=== PATIENT | female | born 1975 | race Caucasian/White ===

== ENCOUNTER 2018-01-04 07:05 | Inpatient (IN) | payer OTHER ==
[2018-01-04] VITALS (14 sets, daily range): BP systolic 138–183; BP diastolic 66–105; PULSE 81–107; RESP 16–20; TEMP 98–99.9; O2SAT 95–100
[~2018-01-04] VITALS: Ht 149.9 cm; Wt 98.2 kg
--- NOTE | 2018-01-04 07:42 | PD ---
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 She says she has been having vaginal bleeding for the past 3 weeks is been somewhat heavy with clots. Started on December 16. It was initially light and has become heavier. She has an appointment with a foam gun operator on Monday. She has a history of tubal ligation in 2006. She is on no prescription medications. She takes Aleve daily she says for migraine headaches. [facility] Past Medical History Medical History: Denies Significant Hx Influenza Vaccination: No ?: Not LMP: NOW Past Surgical History Surgical History: No Previous Surgery Section: Yes (X 2) Social History Alcohol Use: No Tobacco Use: No Substance Use: No Allergies-Medications (Allergen,Severity, Reaction): Coded Allergies: No Known Allergies (Unverified , 01/04/18) Reported Meds & Prescriptions Reported Meds & Active Scripts Active No Active Prescriptions or Reported Medications Review of Systems General / Constitutional: No: Fever Eyes: No: Diploplia, Blurred Vision HENT: Positive: Lightheadedness Cardiovascular: No: Chest Pain or Discomfort, Palpitations Respiratory: No: Cough, Shortness of Breath Gastrointestinal: No: Vomiting, Diarrhea Genitourinary: No: Urgency, Frequency Musculoskeletal: No: Myalgias Skin: No Rash Neurologic: Positive: Weakness, Dizziness Physical Exam Narrative GENERAL: Well-developed female SKIN: Focused skin assessment warm/dry. She is somewhat pale HEAD: Atraumatic. Normocephalic. EYES: Pupils equal and round. No scleral icterus. No injection or drainage. ENT: No nasal bleeding or discharge. Mucous membranes pink and moist. NECK: Trachea midline. No JVD. CARDIOVASCULAR: Regular rate and rhythm. No murmur appreciated. RESPIRATORY: No accessory muscle use. Clear to auscultation. Breath sounds equal bilaterally. GASTROINTESTINAL: Abdomen soft, non-tender, nondistended. Hepatic and splenic margins not palpable TROLLEY CAR OPERATOR: There is some blood coming from the cervical loss. Uterus is 16 weeks in size. MUSCULOSKELETAL: No obvious deformities. No clubbing. No cyanosis. No edema. NEUROLOGICAL: Awake and alert. No obvious cranial nerve deficits. Motor grossly within normal limits. Normal speech. PSYCHIATRIC: Appropriate mood and affect; insight and judgment normal. Data Data Last Documented VS Vital Signs Date Time Temp Pulse Resp B/P (MAP) Pulse Ox O2 Delivery O2 Flow Rate FiO2 01/04/18 08:50 95 20 164/66 (98) 95 01/04/18 07:06 98.5 Room Air Orders Orders Complete Blood Count With Diff (01/04/18 07:40) Basic Metabolic Panel (Bmp) (01/04/18 07:40) Urinalysis - C+S If Indicated (01/04/18 07:40) Beta Hcg (Quant/Titer) (01/04/18 07:40) Sodium Chlor 0.9% 1000 Ml Inj (Ns 1000 M (01/04/18 07:45) Red Blood Cells (Rbc) (01/04/18 08:09) Type And Screen (01/04/18 08:09) Urine Culture (01/04/18 07:49) Admit Order (Ed Use Only) (01/04/18 09:08) ^ Other Nursing Orders (01/04/18 09:08) Labs Laboratory Tests Test 01/04/18 07:30 01/04/18 07:49 White Blood Count 6.8 TH/MM3 Red Blood Count 2.40 MIL/MM3 Hemoglobin 6.8 GM/DL Hematocrit 19.9 % Mean Corpuscular Volume 83.1 FL Mean Corpuscular Hemoglobin 28.3 PG Mean Corpuscular Hemoglobin Concent 34.1 % Red Cell Distribution Width 13.3 % Platelet Count 410 TH/MM3 Mean Platelet Volume 7.7 FL Neutrophils (%) (Auto) 69.5 % Lymphocytes (%) (Auto) 22.9 % Monocytes (%) (Auto) 4.5 % Eosinophils (%) (Auto) 2.4 % Basophils (%) (Auto) 0.7 % Neutrophils # (Auto) 4.8 TH/MM3 Lymphocytes # (Auto) 1.5 TH/MM3 Monocytes # (Auto) 0.3 TH/MM3 Eosinophils # (Auto) 0.2 TH/MM3 Basophils # (Auto) 0.0 TH/MM3 CBC Comment DIFF FINAL Differential Comment Blood Urea Nitrogen 10 MG/DL Creatinine 0.50 MG/DL Random Glucose 115 MG/DL Calcium Level 7.8 MG/DL Sodium Level 140 MEQ/L Potassium Level 3.9 MEQ/L Chloride Level 109 MEQ/L Carbon Dioxide Level 21.2 MEQ/L Anion Gap 10 MEQ/L Estimat Glomerular Filtration Rate 135 ML/MIN Human Chorionic Gonadotropin, Quant LESS THAN 1 MIU/ML Urine Collection Type VOIDED Urine Color LIGHT-RED Urine Turbidity CLEAR Urine pH 5.5 Urine Specific [place] GREATER/EQUAL 1.030 Urine Protein 30 mg/dL Urine Glucose (UA) NEG mg/dL Urine Ketones NEG mg/dL Urine Occult Blood LARGE Urine Nitrite NEG Urine Bilirubin NEG Urine Urobilinogen 0.2 MG/DL Urine Leukocyte Esterase NEG Urine RBC INNUM /hpf Urine WBC 6-8 /hpf Urine WBC Clumps OCC Urine Squamous Epithelial Cells 0-3 /hpf Urine Bacteria FEW /hpf Urine Hyaline Casts MOD /lpf Microscopic Urinalysis Comment CULTURE INDICATED MDM Medical Decision Making Medical Screen Exam Complete: Yes Emergency Medical Condition: Yes Medical Record Reviewed: Yes Differential Diagnosis Differential includes anemia, menorrhagia, uterine fibroids Narrative Course Hemoglobin is 6.8. Patient is quite symptomatic with his anemia. She does have enlarged uterus suspicious for fibroids though this has not been diagnosed definitively. I have spoken with Dr. Mohan covering for Dr. Kumari. She recommends admission at the [facility] for transfusion and TROLLEY CAR OPERATOR evaluation. Ultrasound has been done and shows a fibroid uterus. The left ovary is not seen Diagnosis Primary Impression: Abnormal uterine bleeding Additional Impression: Symptomatic anemia Admitting Information Admitting Physician Requests: Admit Scripts No Active Prescriptions or Reported Meds Chinmay Kitchen MD Jan 04, 2018 07:42
[2018-01-04] MEDS ORDERED: SODIUM CHLOR 0.9% 1000 ML INJ 1,000 ML IV ONE ×2 (07:45→12:00)
[2018-01-04 07:57] LABS: BILIRUBIN, URINE NEG (NEG); BLOOD, URINE LARGE (NEG); GLUCOSE,URINE NEG (NEG); KETONE, URINE NEG (NEG); NITRITE,URINE NEG (NEG); PH, URINE 5.5 (5.0-8.5); URINE LEUKOCYTE ESTERASE NEG (NEG)
[2018-01-04 07:59] LABS: AUTOMATED NEUTROPHIL # 4.8 TH/MM3 (1.8-7.7); BASOPHIL % 0.7 % (0.0-2.0); EOSINOPHIL # 0.2 TH/MM3 (0-0.4); EOSINOPHIL % 2.4 % (0.0-4.0); LYMPH % 22.9 % (9.0-44.0); LYMPHOCYTE # 1.5 TH/MM3 (1.0-4.8); MEAN CELL VOLUME 83.1 FL (80.0-100.0); MEAN CORPUSCULAR HEMOGLOBIN 28.3 PG (27.0-34.0); MEAN CORPUSCULAR HGB CONC 34.1 % (32.0-36.0); MEAN PLATELET VOLUME 7.7 FL (7.0-11.0); MONO % 4.5 % (0.0-8.0); MONOCYTE # 0.3 TH/MM3 (0-0.9); NEUT % 69.5 % (16.0-70.0); PLATELET COUNT 410 TH/MM3 (150-450); RED CELL DISTRIBUTION WIDTH 13.3 % (11.6-17.2)
[2018-01-04 07:59] LABS: URINE COLOR LIGHT-RED (YELLW/STRAW)
[2018-01-04 08:07] LABS: WHITE BLOOD COUNT 6.8 TH/MM3 (4.0-11.0)
[2018-01-04 08:08] LABS: CHLORIDE 109 MEQ/L (98-107); HEMATOCRIT 19.9 % (35.0-46.0); HEMOGLOBIN 6.8 GM/DL (11.6-15.3); SODIUM (NA) 140 MEQ/L (136-145)
[2018-01-04 08:13] LABS: BACTERIA, URINE FEW /hpf; HYALINE CAST, URINE MOD /lpf (RARE); RBC, URINE INNUM /hpf (0-3); SQUAMOUS EPITHELIAL CELL URINE 0-3 /hpf (0-5); WHITE BLOOD CELL CLUMPS OCC
[2018-01-04 08:20] LABS: BICARBONATE 21.2 MEQ/L (21.0-32.0); BLOOD UREA NITROGEN 10 MG/DL (7-18); CALCIUM 7.8 MG/DL (8.5-10.1); GLUCOSE,RANDOM 115 MG/DL (74-106)
[2018-01-04 08:23] LABS: GLOMERULAR FILTRATION RATE 135 ML/MIN (>89)
--- NOTE | 2018-01-04 10:15 | RADRPT ---
EXAM DATE: 01/04/2018 10:03 AM EDT AGE/SEX: 42 years / Female INDICATIONS: Heavy bleeding for three weeks. CLINICAL DATA: This is the patient's initial encounter. Patient reports that signs and symptoms have been present for 3 weeks and indicates a pain score of 0/10. MEDICAL/SURGICAL HISTORY: . Weakness. Dizziness. section. Tubal ligation. COMPARISON: No prior exams available for comparison. MEASUREMENTS: Uterus:__12.8 x 6.0 x 5.1 cm Endometrial Stripe:__19 mm Right Ovary:__ 6.3 x 5.6 x 3.7 cm Left Ovary:__ not seen FINDINGS: Uterus: Several vague areas of focally altered myometrial echogenicity are likely small fibroids inv olving posterior body of uterus. There are tiny nabothian cysts. Right Ovary: Focally unremarkable Left Ovary: Not visualized Other: No free fluid. CONCLUSION: 1. Fibroid uterus. 2. Left ovary is not located Electronically signed by: Lemuel Shaver MD 01/04/2018 10:14 AM EDT
--- NOTE | 2018-01-04 16:25 | HHI.HP ---
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 She originally presented to the [facility] today for dizziness, lightheadedness and found to have a hemoglobin of 6.8. They did not have blood available to transfuse her and my partner Dr. Mohan took the call to transfer her to [facility]. Patient states she has regular monthly cycles since menarche, she skipped her cycle in October and then began her cycle on 12/16/2017 and has been bleeding ever since, she has been passing large clots with overflow, this morning she felt dizzy, weak and went to the ER as stated above. She had an episode of prolonged bleeding for about 14 days 3 years ago, she denies any workup, knowledge of anemia, history of transfusions or hospitalizations or treatment for her cycles. She says she has began to have a headache that started when her most cycle began, it is throbbing behind both eyes radiating to the back of her head, denies any flashes of light, blurriness or changes in her vision, numbness or tingling, or trouble with speech. She denies any history of migraines. Has tried Tylenol with some relief. She denies any history of known hypertension. She has not seen a PCP in 2 years, or maintenance inspector in around 3 years. Review of Systems Constitutional: DENIES: Fever, Chills, Change in appetite Endocrine: DENIES: Heat/cold intolerance Eyes: DENIES: Blurred vision, Eye pain Past Family Social History Allergies: Coded Allergies: No Known Allergies (Unverified , 01/04/18) Past Medical History 1. Obesity Past Surgical History 1. Laparoscopic appendectomy done as a child 2. 2 (2005 & 2007) 3. Breast reduction 1997 Reported Medications None Family History Denies history of bleeding disorders, clotting problems, breast cancer, ovarian cancer or uterine cancer. Social History to name of Eliel. Works at [employer]. Denies tobacco alcohol or drug use. Moved here in the past 2 years from [facility]. 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 -Denies history of STDs or pelvic infections. Obstetrical history: -1994: Normal vaginal delivery -2005: Primary -2008: Repeat Physical Exam Vital Signs BP at bedise 182/100 Vital Signs Date Time Temp Pulse Resp B/P (MAP) Pulse Ox O2 Delivery O2 Flow Rate FiO2 01/04/18 15:30 01/04/18 13:42 92 18 144/76 (98) 100 Room Air 01/04/18 10:50 107 20 138/78 (98) 97 01/04/18 08:50 95 20 164/66 (98) 07:06 98.5 96 16 162/85 (110) 100 Room Air Physical Exam GENERAL: This is a well-nourished, well-developed patient, in no apparent distress. SKIN: No rashes, ecchymoses or lesions. Cool and dry. Pale HEAD: Atraumatic. Normocephalic. No temporal or scalp tenderness. EYES: Pupils equal round and reactive. Extraocular motions intact. No scleral icterus. No injection or drainage. ENT: Nose without bleeding, purulent drainage or septal hematoma. Throat without erythema, tonsillar hypertrophy or exudate. Uvula midline. Airway patent. NECK: Trachea midline. No JVD or lymphadenopathy. Supple, nontender, no meningeal signs. CARDIOVASCULAR: Regular rate and rhythm without murmurs, gallops, or rubs. RESPIRATORY: Clear to auscultation. Breath sounds equal bilaterally. No wheezes , rales, or rhonchi. GASTROINTESTINAL: Abdomen soft, non-tender, nondistended. No hepato-splenomegaly , or palpable masses. No guarding. : Normal external female genitalia, speculum inserted, pink rugated vaginal mucosa, normal-appearing cervix, minimal dark red blood clot in the vagina, cleared away and no active bleeding from the cervix which is also normal- appearing. Bimanual exam: uterus mobile, nontender, 12 week size, no adnexal masses palpable. MUSCULOSKELETAL: Extremities without clubbing, cyanosis, or edema. No joint tenderness, effusion, or edema noted. No calf tenderness. Negative Homans sign bilaterally. NEUROLOGICAL: Awake and alert. Cranial nerves II through XII intact. Motor and sensory grossly within normal limits. Normal speech. Laboratory Laboratory Tests Test 01/04/18 07:30 01/04/18 07:49 White Blood Count 6.8 Red Blood Count 2.40 Hemoglobin 6.8 Hematocrit 19.9 Mean Corpuscular Volume 83.1 Mean Corpuscular Hemoglobin 28.3 Mean Corpuscular Hemoglobin Concent 34.1 Red Cell Distribution Width 13.3 Platelet Count 410 Mean Platelet Volume 7.7 Neutrophils (%) (Auto) 69.5 Lymphocytes (%) (Auto) 22.9 Monocytes (%) (Auto) 4.5 Eosinophils (%) (Auto) 2.4 Basophils (%) (Auto) 0.7 Neutrophils # (Auto) 4.8 Lymphocytes # (Auto) 1.5 Monocytes # (Auto) 0.3 Eosinophils # (Auto) 0.2 Basophils # (Auto) 0.0 CBC Comment DIFF FINAL Differential Comment Blood Urea Nitrogen 10 Creatinine 0.50 Random Glucose 115 Calcium Level 7.8 Sodium Level 140 Potassium Level 3.9 Chloride Level 109 Carbon Dioxide Level 21.2 Anion Gap 10 Estimat Glomerular Filtration Rate 135 Human Chorionic Gonadotropin, Quant LESS THAN 1 Urine Collection Type VOIDED Urine Color LIGHT-RED Urine Turbidity CLEAR Urine pH 5.5 Urine Specific [place] GREATER/EQUAL 1.030 Urine Protein 30 Urine Glucose (UA) NEG Urine Ketones NEG Urine Occult Blood LARGE Urine Nitrite NEG Urine Bilirubin NEG Urine Urobilinogen 0.2 Urine Leukocyte Esterase NEG Urine RBC INNUM Urine WBC 6-8 Urine WBC Clumps OCC Urine Squamous Epithelial Cells 0-3 Urine Bacteria FEW Urine Hyaline Casts MOD Microscopic Urinalysis Comment CULTURE INDICATED Date/Time Source Procedure Growth Status 01/04/18 07:49 Urine Random Urine Urine Culture Pending Received Result Diagram: 01/04/18 0730 01/04/18 0730 Imaging US today (01/04/18) MEASUREMENTS: Uterus:__12.8 x 6.0 x 5.1 cm Endometrial Stripe:__19 mm Right Ovary:__ 6.3 x 5.6 x 3.7 cm Left Ovary:__ not seen FINDINGS: Uterus: Several vague areas of focally altered myometrial echogenicity are likely small fibroids involving posterior body of uterus. There are tiny nabothian cysts. Right Ovary: Focally unremarkable Left Ovary: Not visualized Other: No free fluid. CONCLUSION: 1. Fibroid uterus. 2. Left ovary is not located Caprini VTE Risk Assessment Caprini VTE Risk Assessment: Mod/High Risk (score >= 2) Caprini Risk Assessment Model Point Value = 1 Point Value = 2 Point Value = 3 Point Value = 5 Age 41-60 Minor surgery BMI > 25 kg/m2 Swollen legs Varicose veins or History of unexplained or recurrent spontaneous Oral contraceptives or hormone replacement Sepsis (< 1 month) Serious lung disease, including pneumonia (< 1 month) Abnormal pulmonary function Acute myocardial infarction Congestive heart failure (< 1 month) History of inflammatory bowel disease Medical patient at bed rest Age 61-74 Arthroscopic surgery Major open surgery (> 45 min) Laparoscopic surgery (> 45 min) Malignancy Confined to bed (> 72 hours) Immobilizing plaster cast Central venous access Age >= 75 History of VTE Family history of VTE Factor V Leiden Prothrombin [id number] Lupus anticoagulant Anticardiolipin antibodies Elevated serum homocysteine Heparin-induced thrombocytopenia Other congenital or acquired thrombophilia Stroke (< 1 month) Elective arthroplasty Hip, pelvis, or leg fracture Acute spinal cord injury (< 1 month) Prophylaxis Regimen Total Risk Factor Score Risk Level Prophylaxis Regimen 0-1 Low Early ambulation 2 Moderate Order ONE of the following: *Sequential Compression Device (SCD) *Heparin 5000 units SQ BID 3-4 Higher Order ONE of the following medications: *Heparin 5000 units SQ TID *Enoxaparin/Lovenox 40 mg SQ daily (WT < 150 kg, CrCl > 30 mL/min) *Enoxaparin/Lovenox 30 mg SQ daily (WT < 150 kg, CrCl > 10-29 mL/min) *Enoxaparin/Lovenox 30 mg SQ BID (WT < 150 kg, CrCl > 30 mL/min) AND/OR *Sequential Compression Device (SCD) 5 or more Highest Order ONE of the following medications: *Heparin 5000 units SQ TID (Preferred with Epidurals) *Enoxaparin/Lovenox 40 mg SQ daily (WT < 150 kg, CrCl > 30 mL/min) *Enoxaparin/Lovenox 30 mg SQ daily (WT < 150 kg, CrCl > 10-29 mL/min) *Enoxaparin/Lovenox 30 mg SQ BID (WT < 150 kg, CrCl > 30 mL/min) AND *Sequential Compression Device (SCD) Assessment and Plan Assessment and Plan 42-year-old here today for symptomatic anemia and abnormal uterine bleeding 1. Abnormal uterine bleeding / symptomatic anemia / fibroid: Likely related to anovulation and/or fibroids. Discussed with patient possible need for D&C and/ or hysterectomy if refractory to medical management and continues to have bleeding. If bleeding is controlled discussed possible discharge in the next 24 hours and follow-up as an outpatient for endometrial sampling as this is necessary before further treatment to rule out hyperplasia or malignancy after controlling current bleeding and anemia improved and stable. Briefly discussed options of continued oral progesterone, Depo-Provera, IUDs, ablation and/or hysterectomy. Patient wants to avoid hysterectomy if possible with concerns of menopause but i explained ovaries are typically left given her age. Plan: - Type and cross 4 units, transfuse 2 units. Prior to transfusion will collect TSH, A1C, ferritin, PT/INR, PTT, Fibrinogen, platelet function studies, VW disease work up. AM CBC, BMP, Mg, Phos. LR at 125cc/hr, ebonie-pad counts, regular diet, - IM Depo-Provera now and p.o. Provera 10 mg every 4 hours. - Consider IV iron in AM. 2. Hypertensive emergency / headache: Patient has no stated history of hypertension however she does not see a PCP routinely, will treat with IV hydralazine per protocol, and wrote parameters to call MD if greater than 180 systolic and/or 120 diastolic. Will consult medicine for further evaluation and management, do not believe there is any end organ disease but given her level of anemia would suspect hypotension not the severe degree of hypertension she is experiencing. -Patient on telemetry, normal sinus rhythm, EKG pending. Song Kumari MD Jan 04, 2018 16:25
[2018-01-04] MEDS ORDERED: ONDANSETRON ODT 4 MG TAB PO PRN (17:15)
[2018-01-04] MEDS ORDERED: SODIUM CHLORIDE 0.9% FLUSH 10 ML FLUSH IV FLUSH PRN ×2 (17:15→17:30)
[2018-01-04] MEDS ORDERED: ACETAMINOPHEN/HYDROcodone 325 MG/5 MG TAB PO PRN (17:15)
[2018-01-04] MEDS ORDERED: HYDROmorphone HCL PF 2 MG/ML VIAL IV PUSH PRN (17:15)
[2018-01-04] MEDS ORDERED: ONDANSETRON HCL 4 MG/2 ML VIAL IVP PRN (17:15)
[2018-01-04] MEDS ORDERED: ACETAMIN 325 MG/BUTALBITAL 50 MG/CAFFEINE 40 MG TAB PO ONE (17:15)
[2018-01-04] MEDS ORDERED: medroxyPROGESTERone ACETATE SUSP 150 MG/ML SYRINGE IM ONE (17:15)
[2018-01-04] MEDS ORDERED: diphenhydrAMINE HCL 25 MG CAP PO PRN (17:15)
[2018-01-04] MEDS ORDERED: IBUPROFEN 600 MG TAB PO PRN (17:15)
[2018-01-04] MEDS ORDERED: hydrALAZINE HCL 20 MG/ML VIAL IV PUSH PRN (17:30)
[2018-01-04] MEDS ORDERED: LABETALOL HCL 100 MG/20 ML VIAL IV PUSH PRN (19:00)
[2018-01-04 19:19] LABS: FERRITIN 10 NG/ML (8-252)
[2018-01-04] MEDS: medroxyPROGESTERone ACETATE 10 MG TAB PO SCH ×2 (20:00→23:40)
[2018-01-04 20:11] LABS: PLATELET FUNCTION TEST/EPI 287 SECONDS (103-176)
[2018-01-04 20:12] LABS: HEMOGLOBIN A1C 4.9 % (4.3-6.0)
[2018-01-04] MEDS: SODIUM CHLORIDE 0.9% FLUSH 10 ML FLUSH IV FLUSH SCH (21:00)
[2018-01-04] MEDS ORDERED: SODIUM CHLORIDE 0.9% FLUSH 10 ML FLUSH IV FLUSH SCH (21:00)
[2018-01-05] VITALS (12 sets, daily range): BP systolic 137–166; BP diastolic 69–89; PULSE 71–87; RESP 18–20; TEMP 98–99.7; O2SAT 97–100
[2018-01-05] MEDS: LACTATED RINGER'S 1000 ML INJ 1,000 ML IV SCH ×3 (00:02→17:09)
[2018-01-05 03:35] LABS: AUTOMATED NEUTROPHIL # 4.8 TH/MM3 (1.8-7.7); BASOPHIL # 0.1 TH/MM3 (0-0.2); EOSINOPHIL # 0.2 TH/MM3 (0-0.4); HEMOGLOBIN 7.5 GM/DL (11.6-15.3); LYMPH % 30.8 % (9.0-44.0); LYMPHOCYTE # 2.4 TH/MM3 (1.0-4.8); MEAN CELL VOLUME 79.5 FL (80.0-100.0); MEAN CORPUSCULAR HEMOGLOBIN 27.1 PG (27.0-34.0); MEAN CORPUSCULAR HGB CONC 34.1 % (32.0-36.0); MONO % 5.1 % (0.0-8.0); MONOCYTE # 0.4 TH/MM3 (0-0.9); NEUT % 61.1 % (16.0-70.0); PLATELET COUNT 343 TH/MM3 (150-450); RED BLOOD COUNT 2.76 MIL/MM3 (4.00-5.30); RED CELL DISTRIBUTION WIDTH 16.1 % (11.6-17.2); WHITE BLOOD COUNT 7.8 TH/MM3 (4.0-11.0)
[2018-01-05 03:58] LABS: ALBUMIN 2.7 GM/DL (3.4-5.0); ALT (GPT) 23 U/L (10-53); AST (GOT) 18 U/L (15-37); BICARBONATE 21.2 MEQ/L (21.0-32.0); BLOOD UREA NITROGEN 5 MG/DL (7-18); CALCIUM 7.8 MG/DL (8.5-10.1); CHLORIDE 110 MEQ/L (98-107); CREATININE 0.43 MG/DL (0.50-1.00); GLOMERULAR FILTRATION RATE 160 ML/MIN (>89); GLUCOSE,RANDOM 102 MG/DL (74-106); PHOSPHORUS 3.1 MG/DL (2.5-4.9); SODIUM (NA) 142 MEQ/L (136-145)
[2018-01-05 04:00] LABS: ALKALINE PHOSPHATASE 82 U/L (45-117); TOTAL BILIRUBIN ADULT 0.9 MG/DL (0.2-1.0); TOTAL PROTEIN 5.6 GM/DL (6.4-8.2)
[2018-01-05] MEDS: medroxyPROGESTERone ACETATE 10 MG TAB PO SCH ×4 (04:06→17:22)
--- NOTE | 2018-01-05 06:58 | HHI.PR ---
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 Had heavy bleeding around MN then spotting at 2 and heavy again at 4am with clots and flooding, bleeding coincides with when she stands to use the restroom. Objective - Vital Signs Date Time Temp Pulse Resp B/P (MAP) Pulse Ox O2 Delivery O2 Flow Rate FiO2 01/05/18 04:00 98.0 78 20 150/83 (105) 99 01/04/18 13:42 Room Air Result Diagram: 01/05/18 0325 01/05/18 0325 Objective Remarks GENERAL: This is a well-nourished, well-developed patient, in no apparent distress. SKIN: No rashes, ecchymoses or lesions. color improved EYES: Pupils equal round and reactive. Extraocular motions intact. No scleral icterus. No injection or drainage. CARDIOVASCULAR: Regular rate GASTROINTESTINAL: Abdomen soft, non-tender, nondistended. No hepato-splenomegaly , or palpable masses. No guarding. : deferred MUSCULOSKELETAL: Extremities without clubbing, cyanosis, or edema. NEUROLOGICAL: Awake and alert. Cranial nerves II through XII intact. Motor and sensory grossly within normal limits. Normal speech. A/P Problem List: (1) Symptomatic anemia ICD Code: D64.9 - Anemia, unspecified Status: Acute (2) Abnormal uterine bleeding ICD Code: N93.9 - Abnormal uterine and vaginal bleeding, unspecified Status: Acute Assessment and Plan 42-year-old here today for symptomatic anemia and abnormal uterine bleeding HD #2 1. AUB / anemia / Fibroid uterus: Labs reviewed, s/p 2 PRBCs, anemia improved and symptoms have resolved but still too low for d/c, bleeding seems to be potentially improving, discussed that if still having heavy bleeding through the AM may consider switching to IV estrogen or possible D&C. Plan: - s/p IM depo x1, continue PO Provera 10mg q4h, will need Rx written to taper as an outpatient if this regimen is successful. (usually 10mg QID x 2-3d, TID x 2-3d, ect) - Give IV Fe, 2 more units. PO Lasix x2, calcium replacement. Repeat CBC 2 hours after 2nd unit today (4th total), repeat CBC, BMP, Mag ordered for tomorrow AM - Anticipate d/c home either later today or tomorrow AM depending on blood work and bleeding. 2. Hypertensive emergency / headache: CABELLO resolved, still HTN but no longer severe, required 1 dose IV labetalol overnight. Tele is NSR, EKG normal. Plan: - Begin lisinopril 5mg qd, Rx written for d/c, strongly encouraged patient to establish with PCP as likely has undiagnosed hypertension. Patient has no stated history of hypertension however she does not see a PCP routinely, will treat with - - Consult to IM placed for management of emergency HTN, pt has not been evaluated yet for this, no longer an acute issue. Song Kumari MD Jan 05, 2018 06:57
[2018-01-05] MEDS ORDERED: FUROSEMIDE 20 MG TAB PO ONE (07:00)
[2018-01-05] MEDS ORDERED: LISI-519 PO (07:15)
[2018-01-05] MEDS ORDERED: FERR325T18 PO (07:15)
[2018-01-05] MEDS ORDERED: IRON SUCROSE INJ 100 MG in SODIUM CHLORIDE 0.9% INJ 100 ML IV ONE (08:00)
--- NOTE | 2018-01-05 08:48 | PD.CONS ---
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 Beaver is a pleasant 42-year-old female with a history of hypertension who presented to the emergency department on 01/04/2018 due to heavy vaginal bleeding as well as weakness and dizziness. Her vaginal bleeding started on December 16 but more severe on December 20. On 01/04/2018 the day of presentation to ED, patient went to the bathroom and noticed heaving bleeding with blood clots. She felt nauseated and had tachycardia as well as dizziness, weakness. Additionally, she had headache as well. Patient also felt her heart rate was high. She subsequently decided to come to the ED. She was admitted under her [employer] Dr. Kumari. Hospitalist service was consulted for headache as well as hypertension. At the time of this interview, patient reports resolution of her headache. She started bleeding again earlier this morning. She has received two units of PRBCs so far. Her Hemoglobin 6.8 --> 7.5 after transfusion. Review of Systems Except as stated in HPI: all other systems reviewed are Neg Past Family Social History Allergies: Coded Allergies: No Known Allergies (Unverified , 01/04/18) Past Medical History Hypertension Past Surgical History 2, breast reduction surgery, appendectomy Reported Medications Iron supplement, lisinopril 10 mg daily. Family History Mother with hypertension, diabetes mellitus Social History Does not use tobacco, alcohol, illicit drugs. Physical Exam Vital Signs Vital Signs Date Time Temp Pulse Resp B/P (MAP) Pulse Ox O2 Delivery O2 Flow Rate FiO2 01/05/18 04:00 98.0 78 20 150/83 (105) 99 01/05/18 04:00 74 01/05/18 00:00 87 01/05/18 00:00 98.5 83 20 156/85 (108) 99 01/04/18 23:56 98.0 84 20 156/85 100 01/04/18 21:39 98.2 87 20 142/78 100 01/04/18 21:17 98.5 88 18 145/85 99 01/04/18 21:14 98.4 89 18 148/86 100 01/04/18 20:20 98.2 86 20 142/78 (99) 100 01/04/18 20:00 81 01/04/18 19:27 99.1 87 18 172/103 95 01/04/18 18:53 99.9 100 18 182/105 01/04/18 18:51 99.9 01/04/18 16:00 99.5 91 18 183/96 (125) 100 01/04/18 15:30 01/04/18 13:42 92 18 144/76 (98) 100 Room Air 01/04/18 10:50 107 20 138/78 (98) 97 01/04/18 08:50 95 20 164/66 (98) 95 Physical Exam GENERAL: This is a well-nourished, well-developed patient, in no apparent distress. SKIN: No rashes, ecchymoses or lesions. Warm and dry. HEAD: Atraumatic. Normocephalic. No temporal or scalp tenderness. EYES: Pupils equal round and reactive. No injection or drainage. ENT: Nose without bleeding, purulent drainage or septal hematoma. Airway patent. NECK: Trachea midline. No lymphadenopathy. Supple, nontender, no meningeal signs. CARDIOVASCULAR: Regular rate and rhythm without murmurs, gallops, or rubs. No JVD. RESPIRATORY: Clear to auscultation. Breath sounds equal bilaterally. No wheezes , rales, or rhonchi. GASTROINTESTINAL: Abdomen soft, non-tender, nondistended. No guarding. MUSCULOSKELETAL: Extremities without clubbing, cyanosis, or edema. NEUROLOGICAL: Awake and alert. Cranial nerves II through XII intact. No focal neurological deficits. Normal speech. Laboratory Laboratory Tests Test 01/04/18 18:20 01/05/18 03:25 Prothrombin Time 10.0 Prothromb Time International Ratio 1.0 Activated Partial Thromboplast Time 20.3 Fibrinogen 257 Platelet Function Screen (ADP) 45 Platelet Function Scrn (Epinephrine 287 Hemoglobin A1c 4.9 Ferritin 10 Thyroid Stimulating Hormone 3rd Gen 0.722 White Blood Count 7.8 Red Blood Count 2.76 Hemoglobin 7.5 Hematocrit 22.0 Mean Corpuscular Volume 79.5 Mean Corpuscular Hemoglobin 27.1 Mean Corpuscular Hemoglobin Concent 34.1 Red Cell Distribution Width 16.1 Platelet Count 343 Mean Platelet Volume 7.0 Neutrophils (%) (Auto) 61.1 Lymphocytes (%) (Auto) 30.8 Monocytes (%) (Auto) 5.1 Eosinophils (%) (Auto) 2.0 Basophils (%) (Auto) 1.0 Neutrophils # (Auto) 4.8 Lymphocytes # (Auto) 2.4 Monocytes # (Auto) 0.4 Eosinophils # (Auto) 0.2 Basophils # (Auto) 0.1 CBC Comment DIFF FINAL Differential Comment Blood Urea Nitrogen 5 Creatinine 0.43 Random Glucose 102 Total Protein 5.6 Albumin 2.7 Calcium Level 7.8 Phosphorus Level 3.1 Magnesium Level 2.0 Alkaline Phosphatase 82 Aspartate Amino Transf (AST/SGOT) 18 Alanine Aminotransferase (ALT/SGPT) 23 Total Bilirubin 0.9 Sodium Level 142 Potassium Level 3.6 Chloride Level 110 Carbon Dioxide Level 21.2 Anion Gap 11 Estimat Glomerular Filtration Rate 160 Date/Time Source Procedure Growth Status 01/04/18 07:49 Urine Random Urine Urine Culture Pending Received Result Diagram: 01/05/18 0325 01/05/18 0325 Imaging Last Impressions Abdomen/Pelvis/Transvag US 01/04/18 0914 Signed Impressions: CONCLUSION: 1. Fibroid uterus. 2. Left ovary is not located Assessment and Plan Problem List: (1) Uterine fibroid ICD Code: D25.9 - Leiomyoma of uterus, unspecified (2) Abnormal uterine bleeding ICD Code: N93.9 - Abnormal uterine and vaginal bleeding, unspecified Status: Acute (3) Symptomatic anemia ICD Code: D64.9 - Anemia, unspecified Status: Acute (4) Headache ICD Code: R51 - Headache (5) HTN (hypertension) ICD Code: I10 - Essential (primary) hypertension Assessment and Plan Ms. Beaver is a pleasant 42-year-old female with a history of hypertension who was admitted to the hospital due to symptomatic anemia due to significant vaginal bleeding. Patient was admitted under CHRONOMETER REPAIRER service. Hospitalist service was consulted for headache and hypertension. Patient received 2 units of PRBCs due to hemoglobin 6.8. Uterine fibroid Heavy vaginal bleeding Symptomatic anemia -Appreciate CHRONOMETER REPAIRER input. -Hemoglobin improved from 6.8 to 7.5 after two units of transfusion Headache Hypertension -Headache symptoms are resolved. Possibly due to heavy menstruation and hypertension. -Use acetaminophen for headache. -Patient is not a diabetic patient, would prefer to use amlodipine 5 mg daily. -If ankle edema develops due to amlodipine consider small dose of lisinopril or losartan. Full code. Ambulation. Thank you for the consult. We will continue to follow this patient with you. Joanna Mills DO Jan 05, 2018 08:48
[2018-01-05] MEDS ORDERED: ACETAMINOPHEN 500 MG CPLT PO PRN (09:00)
[2018-01-05] MEDS ORDERED: amLODIPine BESYLATE 5 MG TAB PO SCH (09:00)
[2018-01-05] MEDS ORDERED: LISINOPRIL 5 MG TAB PO SCH (09:00)
[2018-01-05] MEDS ORDERED: CALCIUM CARBONATE 1.25 GM (CA 500 MG) TAB PO SCH (09:00)
[2018-01-05] MEDS: SODIUM CHLORIDE 0.9% FLUSH 10 ML FLUSH IV FLUSH SCH (11:43)
--- NOTE | 2018-01-05 15:19 | EKG ---
Date Performed: 01/04/2018 Time Performed: 19:29:52 PTAGE: 42 years EKG: Sinus rhythm NORMAL ECG NO PREVIOUS TRACING DOCTOR: Franklin Amaya Interpretating Date/Time 01/05/2018 15:18:14
--- NOTE | 2018-01-05 17:25 | HHI.PR ---
Subjective Remarks feeling much better bleeding essentially stopped Objective Vital Signs Date Time Temp Pulse Resp B/P (MAP) Pulse Ox O2 Delivery O2 Flow Rate FiO2 01/05/18 17:11 99.5 80 18 156/69 (98) 98 01/05/18 15:04 99.2 82 18 150/82 100 01/05/18 14:40 99.7 82 18 150/82 100 01/05/18 11:15 72 18 137/80 100 01/05/18 10:38 98.9 80 18 138/84 99 01/05/18 10:21 98.8 80 18 138/84 (102) 99 01/05/18 04:00 98.0 78 20 150/83 (105) 99 01/05/18 04:00 74 01/05/18 00:00 87 01/05/18 00:00 98.5 83 20 156/85 (108) 99 01/04/18 23:56 98.0 84 20 156/85 100 01/04/18 21:39 98.2 87 20 142/78 100 01/04/18 21:17 98.5 88 18 145/85 99 01/04/18 21:14 98.4 89 18 148/86 100 01/04/18 20:20 98.2 86 20 142/78 (99) 100 01/04/18 20:00 81 01/04/18 19:27 99.1 87 18 172/103 95 01/04/18 18:53 99.9 100 18 182/105 01/04/18 18:51 99.9 I/O 01/04/18 01/04/18 01/04/18 01/05/18 01/05/18 01/05/18 07:00 15:00 23:00 07:00 15:00 23:00 Intake Total 460 ml 880 ml 430 ml 30 ml Output Total 600 ml Balance 460 ml 280 ml 430 ml 30 ml Intake Oral 480 ml Packed Cells 400 ml 400 ml 400 ml Blood Product IV Normal Saline Flush 60 ml 30 ml 30 ml Output Urine Total 600 ml # Voids 1 1 # Sanitary Pads 1 Pads 7 Pads 4 Pads Result Diagram: 01/05/18 0325 01/05/18 0325 Assessment and Plan Assessment and Plan counseled on bleeding causes and expectations will go home with ocps to take BID and see Tyser on Terra Marin MD Jan 05, 2018 17:24
[2018-01-05] MEDS ORDERED: AMLO5 PO (17:28)
[2018-01-07 03:51] LABS: FACTOR VII(7) ACTIVITY 131 (60-150)
[2018-01-08 13:51] LABS: APTT VON WILL EVAL 19 sec (22-34)
[2018-01-08 15:51] LABS: COAG FACTOR VIII 279 (50-180)
[2018-01-08 19:50] LABS: VWF AG 181 % (50-217)
[2018-01-08 23:52] LABS: VWF RISTOCETIN CO FACTOR 157 (42-200)
== END 2018-01-05 21:10 | disposition home or self-care (01) | DRG 812 ==
LOC: PHED 07:05 → PHEDA 09:11 → HCIN 15:57
PROVIDERS: ADMIT Obstetrics & Gynecology; ATTEND Obstetrics & Gynecology
PROC: 30233N1 Transfusion of Nonautologous Red Blood Cells into Peripheral Vein, Percutaneous Approach (ICD-10-PCS; principal; 2018-01-04)
DX: D50.0 Iron deficiency anemia secondary to blood loss (chronic) (principal); I10 Essential (primary) hypertension; I16.1 Hypertensive emergency; D25.9 Leiomyoma of uterus, unspecified; G43.909 Migraine, unspecified, not intractable, without status migrainosus; R00.0 Tachycardia, unspecified; Z82.49 Family history of ischemic heart disease and other diseases of the circulatory system
CPT/HCPCS: 36430; 76830; 76856; 80048; 80053; 81001; 82330; 82728; 83020; 83036; 83735; 84100; 84443; 84702; 85025; 85230; 85240; 85245; 85246; 85247; 85384; 85576; 85610; 85730; 86850; 86900; 86901; 86920; 87086; 93005; 93975; 96360; J1050; J1756; J7030; J7120; P9016